=== PATIENT | female | born 1975 | race Caucasian/White ===

== ENCOUNTER 2016-11-06 01:33 | Day surgery (SDC) | payer OTHER ==
[~2016-11-06] VITALS: Ht 162.6 cm; Wt 84.5 kg
[2016-11-06] VITALS (14 sets, daily range): BP systolic 100–122; BP diastolic 62–72; PULSE 59–103; RESP 11–20; O2SAT 94–98
[~2016-11-06 01:33] MED LIST: ATEN50TA PO; CYCL5TAB PO; LEVO112T4 PO; RANI150C4 PO
[2016-11-06] MEDS ORDERED: Rocuronium 10 mg/mL 5 mL Inj ONE (01:34)
[2016-11-06] MEDS ORDERED: Ondansetron 2 mg/mL 2 mL Inj ONE (01:34)
[2016-11-06] MEDS ORDERED: Dexamethasone 4 mg/mL Inj ONE (01:34)
[2016-11-06] MEDS ORDERED: MetoCLOpramide 5 mg/mL 2 mL Inj ONE (01:34)
[2016-11-06] MEDS ORDERED: Ketamine 10 mg/mL 20 mL Inj ONE (01:34)
[2016-11-06] MEDS ORDERED: fentaNYL-PF 50 mCg/mL 2 mL Inj ONE (01:34)
[2016-11-06] MEDS ORDERED: Propofol 10,000 mCg/mL 20 mL Inj ONE (01:34)
[2016-11-06] MEDS ORDERED: Lactated Ringer's 1,000 ML IV SCH ×2 (05:00→12:16)
[2016-11-06 09:48] LABS: BASOPHILS % (AUTO) 0.5 % (0-3); EOSINOPHILS % (AUTO) 5.3 % (0-5); MONOCYTES % (AUTO) 12.5 % (4-12); Mean Corpuscular Hemoglobin 29.8 pg (27.0-35.0); Mean Corpuscular Volume 89.8 fL (81-100); NEUTROPHILS % (AUTO) 49.5 % (40-74); Platelet Count 280 bil/L (150-400)
[2016-11-06 10:06] LABS: INR 0.94 ratio
[2016-11-06] MEDS ORDERED: Lactated Ringer's 500 ML IV PRN (12:16)
--- NOTE | 2016-11-06 12:16 | PCM.HPANE ---
Patient Data Surgeon Admitting Provider: Attending Provider:Jaime Gonzales MD Primary Care Physician:Allison Smith DO Other Provider: Reason for Visit Super Ventricular Tachycardia Ht/WT & BMI Height (Feet): 5 Height (Inches): 4.00 Weight (Kilograms): 84.500 Body Mass Index 31.80 Allergies Coded Allergies: Penicillins (Verified Allergy, Severe, 10/10/15) ampicillin (Verified Allergy, Unknown, 10/10/15) dicloxacillin (Verified Allergy, Unknown, 10/10/15) doxycycline (Verified Allergy, Unknown, 10/10/15) Uncoded Allergies: Penicillin (Allergy, Severe, 11/13/03) Past Anesthesia History Anesthesia History: Denies:: Anesthesia Reactions Diabetes History Hx Diabetes?: No MRSA MRSA: No Medications Hypertension Medication: No Home Meds Incl Beta Abdelrahman: No Reported Medications Cyclobenzaprine 5 Mg Tablet2.5-15 Mg PO HS PRN Spasm Ref 0 11/05/16 Ranitidine 150 Mg [id number] Mg PO DAILY Ref 0 May take once or twice a day 10/09/15 Levothyroxine 112 Mcg [id number] Mcg PO DAILY For Thyroid Replacement Ref 0 10/09/15 Atenolol 50 Mg [id number] Mg PO DAILY #30 TABLET Ref 0 02/06/15 History History of ENT Problems?: No Hx of Heart Problems?: Yes Cardiovascular History: Positive for:: Cardiac Surgery (ablations) Chest Pain Irregular Heartbeat (SVT, post ablation wtih recurrence) Denies:: Congestive Heart Failure Edema Heart Murmur Hypertension Pacemaker Thrombophlebitis Hx of Respiratory Problem?: No Hx Neurologic Problems?: No Hx of GI Problems?: No Gastrointestinal History: Positive for:: Heartburn (RARELY) Hx of Problems?: Yes Genitourinary History: Positive for:: Kidney Stones (12 years ago. pass on their own) Urinary Tract Infection (has had several) Female Hx: Denies:: Currently Hx Musculoskeletal Problems?: No Hx of Psycho/Social Problems?: No Hx Surgeries?: Yes Hx Any Other Health Problems?: Yes Other History: Positive for:: Hospitalization Thyroid Disease Denies:: Cancer History Blood Transfusions: Denies:: Accept Blood Products? Blood Transfuse Reaction Blood Transfusions Hx Diabetes: No Hx Alcohol Use: Yes (occasional)Hx Substance Use: No Smoking Status: Former Smoker Current Some Day Smoker Have You Smoked inLast 12 mo: YesApprox How Many Cigarettes/day: 3 Stop/Bang Treated for Sleep Apnea?: Yes Do You Have a CPAP Machine?: Yes B- Body Mass Index > 35 kg/m2: No A- Age over 50: No N- Neck Large Circumference: Yes G- Gender Male: No GUY Risk Assessment: High Risk, =/>3 Yes Risk Assessment Category Category 1A: Patient has history of documented sleep apnea, and HAS NOT received any narcotic, sedative or anesthesia administration during this stay. Category 1B: Patient has history of documented sleep apnea, and HAS received any narcotic , sedative or anesthesia administration during this stay Category 2: Patient has SUSPECTED Obstructive Sleep Apnea, and HAS received any narcotic , sedative or anesthesia administration during this stay. Category 3: Patient has SUSPECTED Obstructive Sleep Apnea and HAS NOT received narcotic, sedative or anesthesia administration during this stay. Category 4: Outpatient in Procedural Areas with known sleep apnea or who screen positive for High Risk via the STOP/BANG questionnaire. Exam Exam Vital Signs Vital Signs Date Time Temp Pulse Resp B/P Pulse Ox O2 Delivery O2 Flow Rate FiO2 11/06/16 09:49 36.8 59 15 100/69 98 Room Air General Appearance: Oriented X3 HEENT/AIRWAY: MP 2 Lungs: Normal Air Movement Heart: Regular Rate/Rhythm Meds/Labs/Diagnostics Labs Test 11/06/16 09:45 White Blood Count 6.6th/mm3 (3.8-10.1) Red Blood Count 4.63mil/mm3 (3.90-5.20) Hemoglobin 13.8g/dL (12.0-15.6) Hematocrit 41.6% (35.0-46.0) Mean Corpuscular Volume 89.8fL (81-100) Mean Corpuscular Hemoglobin 29.8pg (27.0-35.0) Mean Corpuscular Hemoglobin Concent 33.2% (32.0-37.0) Red Cell Distribution Width 13.7% (12.3-15.4) Platelet Count 280bil/L (150-400) Neutrophils (%) (Auto) 49.5% (40-74) Lymphocytes (%) (Auto) 32.0% (14-46) Monocytes (%) (Auto) 12.5% (4-12) Eosinophils (%) (Auto) 5.3% (0-5) Basophils (%) (Auto) 0.5% (0-3) Prothrombin Time 10.0sec (8.1-12.5) Prothromb Time International Ratio 0.94ratio Sodium Level 139mEq/L (134-144) Potassium Level 4.2mEq/L (3.5-5.2) Chloride Level 104mEq/L (97-108) Carbon Dioxide Level 24mmol/L (18-29) Blood Urea Nitrogen 8mg/dL (6-24) Creatinine 0.74mg/dL (0.57-1.00) Estimat Glomerular Filtration Rate 123mL/min (>59) Glucose Level 93mg/dL (60-99) Calcium Level 9.2mg/dL (8.5-10.1) Plan Impression Patient chart reviewed, patient interviewed and anesthestic plan with risks, benefits, and alternatives discussed, and informed consent obtained. ASA Physical Status: ASA3 Severe Disease Anesthetic Support Modalities: Arterial Line Anesthetic Plan: GA Bene/Risks/Altern/Consents: Yes HP Complete Prior to Induction: Yes Gustabo Olmedo MD Nov 06, 2016 12:16
[2016-11-06] MEDS ORDERED: MetoCLOpramide 5 mg/mL 2 mL Inj IVPUSH PRN (12:20)
[2016-11-06] MEDS ORDERED: EPHEDrine Sulfate 50 mg/mL Inj IVPUSH PRN (12:20)
[2016-11-06] MEDS ORDERED: HYDROmorphone 1 mg/mL Inj IVPUSH PRN (12:20)
[2016-11-06] MEDS ORDERED: Dexamethasone 4 mg/mL Inj IVPUSH PRN (12:20)
[2016-11-06] MEDS ORDERED: fentaNYL-PF 50 mCg/mL 2 mL Inj IVPUSH PRN (12:20)
[2016-11-06] MEDS ORDERED: Ondansetron 2 mg/mL 2 mL Inj IVPUSH PRN (12:20)
[2016-11-06] MEDS ORDERED: Phenylephrine 10,000 mCg/mL Inj IVPUSH PRN (12:20)
[2016-11-06] MEDS ORDERED: Heparin 5,000 Units/500 mL NS Premix IV ONE (12:24)
[2016-11-06] MEDS ORDERED: 0.9% Sodium Chloride 500 ML ONE (13:01)
[2016-11-06] MEDS ORDERED: Isoproterenol 200 mCg/50 mL D5W IV IV ONE (14:16)
--- NOTE | 2016-11-06 15:57 | PCM.ANEP2 ---
Post Anesthesia Evaluation ASA/CMS Post Anesthesia VS in Patient's Normal Range?: Yes Resp Stable; Airway Patent?: Yes CV Function & Hydration Stable: Yes Mental Status Recovered?: Yes Pain control Satisfactory?: Yes N/V Control Satisfactory?: Yes Gustabo Olmedo MD Nov 06, 2016 15:57
--- NOTE | 2016-11-06 15:57 | PCM.ANEP1 ---
Post Anesthesia Phase 1 PACU Phase 1 Assessment Vital Signs Vital Signs Date Time Temp Pulse Resp B/P Pulse Ox O2 Delivery O2 Flow Rate FiO2 11/06/16 15:40 97 18 114/71 11/06/16 15:40 97 13 114/71 98 Room Air 11/06/16 15:35 102 18 120/72 11/06/16 15:35 102 13 120/72 98 Room Air 11/06/16 15:30 103 18 121/64 98 Room Air 11/06/16 15:30 103 18 121/64 11/06/16 09:49 36.8 59 15 100/69 98 Room Air Anesthetic Administered: GA Level of Alertness: Awake, talking Pain: No Lungs: Normal Air Movement Gustabo Olmedo MD Nov 06, 2016 15:57
[2016-11-06] MEDS: HYDROcodone-APAP 5-325 mg Tablet PO PRN ×2 (16:32→23:29)
[2016-11-06] MEDS: 0.9% Sodium Chloride 1,000 ML IV SCH ×2 (16:33→17:45)
--- NOTE | 2016-11-06 16:37 | PROCED ---
[address] [address] PROCEDURE NOTE PATIENT: RADHA MADRID : 1975 MR#: [id number] ADMIT: 11/06/2016 JOB ID: [id number] DATE OF SERVICE: 11/06/2016 PREOPERATIVE DIAGNOSIS(ES): Paroxysmal drug refractory supraventricular tachycardia. 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 PROCEDURES PERFORMED: 1. Comprehensive electrophysiology study including left atrial pacing recording via the coronary sinus catheter. 2. Supraventricular tachycardia ablation (slow pathway modification). 3. Three-dimensional electroanatomic mapping using the CARTO 3 system. 4. Drug provocation with isoproterenol. 5. Fluoroscopy. SURGEON: Jaime Gonzales MD, electrophysiology attending [employer]: Justin Aleman PA-C; Sylvester Chacon. ANESTHESIA: General endotracheal anesthesia was undertaken for this case. INDICATION: The patient is a pleasant 41-year-old woman with a structurally normal heart and recurrent drug refractory SVT for which she has had a previous EP study without inducibility of tachycardia but with noted dual AV javy physiology. On loop recorder interrogation, she has had multiple episodes of short RP SVT. After discussion of risks and benefits of EP study and a slow pathway modification, she opted to proceed. PROCEDURAL DESCRIPTION: Following informed and signed consent, the patient was taken to the EP laboratory in a fasting nonsedated state, where she was prepped in the usual sterile fashion. The bilateral groins were infiltrated with 1% lidocaine. Then, using modified Seldinger technique, two 6-Cook Islander sheaths were inserted into the left femoral vein. A 7 and 8-[place] sheath were inserted into the right femoral vein. Under fluoroscopic guidance, a deflectable decapolar catheter was advanced to the coronary sinus with the most proximal bipole at the os of the sinus. A CRD 2 catheter was advanced to the His position and a Rox quadripolar catheter was advanced to the RV apex. A comprehensive electrophysiology study was undertaken with right atrial pacing and recording, right ventricular pacing and recording, His bundle recording, left axis coronary sinus via the coronary sinus catheter. Ventricular pacing showed a concentric atrial activation pattern. Antegrade conduction showed an antegrade jump with multiple single echoes but no nonsustained tachycardia. Isoproterenol infusion was started and aggressive maneuvers were again undertaken. She would repeatedly have single echoes but no sustained AV node re-entry tachycardia. Given her identified clinical SVT, I decided to proceed with slow pathway modification. An F curve non irrigated 4 mm ablation catheter was brought to the field and used to create a three-dimensional electroanatomic map of the right atrium, tricuspid anulus and triangle of SILVA. For stability the short 8-[place] Islander sheath was exchanged over a long wire for an SR0 sheath through which the ablation catheter was redeployed. The ablation catheter was placed at the base of the triangle of SILVA and ablation lesions were placed there in the region of the slow pathway ultimately leading to multiple conducted junctional beats. Aggressive induction maneuvers were undertaken post ablation without inducible jumps or echoes. As such, we completed our procedure. All catheters and sheaths were removed. Manual pressure was held for hemostasis. The patient was transferred to the [facility] for monitoring, bedrest and discharge. COMPLICATIONS: None. ESTIMATED BLOOD LOSS: Negligible. FINDINGS: 1. Baseline rhythm is sinus with an RR interval of 712 msec, AR 149 msec, QRS 88 msec, QT 395 msec. 2. Intracardiac intervals: AH interval 71 msec, HV 42 msec. This was post ablation. 3. Retrograde conduction: VA Wenckebach is seen at 280 msec. Atrial activation is concentric. VERP is 280 msec at a [address] VA ERP is less or equal to this value. 4. Antegrade conduction: AV Wenckebach 400 msec. Fast pathway ERP is 340 msec. Slow pathway ERP 280 msec. 5. Slow pathway modification as described above without inducibility post ablation with no antegrade jumps and no echoes. IMPRESSION: Successful slow pathway modification for atrioventricular node re-entry tachycardia. PLAN: 1. Bedrest x4 hours. 2. Monitoring and discharge from the [facility]. 3. Aspirin 325 mg p.o. daily x1 month. 4. Follow up with or Justin Aleman in clinic in four weeks. 5. Decrease diltiazem to 25 mg daily. ATTENDING STATEMENT: Jaime Gonzales MD, electrophysiology attending, was present for and supervised/performed all aspects of this procedure.
--- NOTE | 2016-11-06 17:48 | NUR ---
Care Assumed Care assumed at 1600. Bilateral groins without bleeding or hematoma. C/O pain in groins, right greater than left. No bruising or swelling noted and pt. very drowsy. More awake at 1630 and c/o 8/10 pain. Vicodin 2 po given but states not helpful. Motrin 600mg po given and awaiting result. VSS. Tele SR. Po intake increasing. Art line discontinued intact at 1700 and no bleeding or hematoma. O2 titrated down to 2L to this point. Continue to monitor per order.
[2016-11-06] MEDS ORDERED: Lidocaine 2% 6mL Topical Jelly TOPICAL ONE (18:30)
--- NOTE | 2016-11-06 20:40 | NUR ---
LUCAS->[facility] rm 3013 pt arrived on [facility] via stretcher by LUCAS CORTES. pt c/o pain 05/12 on R inguinal area, 5/10 on L. Pt oriented to unit. Questions answered. Personal belongings put away. VSS. Call light in reach. bed in low position, 3 rails up. IVs x2 patent. Both sites are C/D/I with bandages. Will continue to monitor.
--- NOTE | 2016-11-06 20:44 | NUR ---
Pain/Transfer VS and groins stable at 1930 when bedrest complete. Attempted to get up but unable r/t throbbing pain in right groin. Dr. Gonzales notified and orders received. Pt voided per bedpan and Morphine 2mg IVP given and stated helpful though still had too much pain with movement to rise. Faith Healer notified and bed obtained. Report to Ethel Alonso RN. Family at bedside and aware. Transported to 3013 with all belongings via bed but staff in no acute distress. Bedside check done.
--- NOTE | 2016-11-06 22:43 | NUR ---
Ambulation/Pain Pt up to bathroom with RN at bedside. Pt winced with pain, "I'd rather have 10 kids". Will void into bedpan next time. R and L inguinal bandages unchanged. R side significantly more tender. Pt compares pain to be 2x greater on R side than L. No noted bruising or puffiness under bandages. will continue to monitor.
[2016-11-07] VITALS (8 sets, daily range): BP systolic 101–125; BP diastolic 64–77; PULSE 58–80; RESP 18–20; O2SAT 94–96
[2016-11-07] MEDS: 0.9% Sodium Chloride 1,000 ML IV SCH ×3 (03:35→22:21)
[2016-11-07] MEDS: HYDROcodone-APAP 5-325 mg Tablet PO PRN ×4 (03:41→20:30)
--- NOTE | 2016-11-07 05:08 | NUR ---
pain [place] 2 tabs given Q4hrs per pt's request for 8-08/12 groin/incision site pain R>L. Groin sites are soft without hematoma. bandaids are CDI. Tele SR in the 70s per telephone clerk. Pt is willing to try BSC, but hasn't been up yet.
--- NOTE | 2016-11-07 08:47 | NUR ---
Social Work: Screening Data: Pt is a 41 y/o female admitted for super ventricular tachycardia. Pt's PCP is Dr Smith, pt's insurance is [facility]. Pt readmit score is 4. EMR reviewed, no d/c planning needs anticipated at this time. ITEM REPAIR MANAGER will continue to follow if needs arise. Assessment: Pt who is independent at baseline. Plan: Pt will d/c home via POV when medically stable. No d/c planning needs anticipated at this time. ITEM REPAIR MANAGER will continue to follow if needs arise. DUONG Haynes
--- NOTE | 2016-11-07 10:50 | DRSVH ---
PROCEDURE: US DUPLEX DOPPLER UNILATERAL LEG ARTERIES, RIGHT INDICATIONS: r/o pseudoaneurysm TECHNIQUE: Color and pulse Doppler interrogation was performed of the right lower extremity arterial system, wit h image documentation. COMPARISON: None. FINDINGS: Sonographic images of the right groin demonstrated patency of the visualized superficial and common f emoral vasculature. No pseudoaneurysm or fluid collection is identified. IMPRESSION: No pseudoaneurysm. * Dictated by: Shelby Avery M.D. on 11/07/2016 at 10:48 Approved by: Shelby Avery M.D. on 11/07/2016 at 10:48
--- NOTE | 2016-11-07 11:57 | NUR ---
CP Pt c/o of CP (under the left breast), with numbness and tingling down both arms into fingers, and c/o of nausea. STAT ECG ordered, Zofran 4 mg given, Dr Janet negro. Pt a/o x3, conversing and laughing with family. Pt appears to be uncomfortably clutching left breast. Addendum: 11/07/16 at 1200 by KENDRA HOLLIS RN vitals stable 125/77 Hr 66, afebrile.
--- NOTE | 2016-11-07 11:59 | NUR ---
Chest discomfort Called by primary RN, pt reports feeling chest discomfort under L breast, nausea and tingling in L hand. Stat EKG ordered, tele is NSR 60's, page out to Dr Gonzales
--- NOTE | 2016-11-07 12:56 | DRSVH ---
[facility] [address] [place] [address] Echocardiogram Report Name: RADHA MADRID JStudy D ate: 11/07/2016 Height: 64 in Hospital Exam Location: [facility] Weight: 186 lb Gender: Female BSA: 1.9 m2 : 1975 Age: 41 yrs BP: 125/77 mmHg Reason For Study: CHEST PAIN S/P ABLATION Ordering Physician: Performed By: Dia Nguyen Interpretation Summary There is no pericardial effusion. Procedure: A two-dimensional transthoracic echocardiogram with Doppler was performed in limited views only. Left Ventricle: The left ventricle is normal in size. There is normal left ventricular wall thickness. The ejection fraction is estimated to be 60-65%. Assessment of diastolic parameters indicates normal left ventricular diastolic function and normal filling pressures. Great Vessels: The IVC is of normal diameter and collapses greater than 50% with a sniff. This suggests a low right atrial pressure of 3 mm Hg. Pericardium/ Pleura There is no pericardial effusion. MMode/2D Measurements & Calculations LVIDd IVC diam LV fan. diameter/BSA LV sys. diameter/BSA : 4.5 cm : 1.1 cm (cm/m^2): 2.4 (cm/m^2): 1.7 LVIDs : 3.3 cm FS: 26.7 % IVSd : 1.cm LVPWd : 0.7cm Doppler Measurements & Calculations MV E max pan MV E/A: 1.5 MV dec time MV P1/2t max pan : 82.9 cm/sec Med Peak E' Pan : 0.18 sec MV A max pan : 54.9 cm/sec E/E' med: 8.5 MVA(P1/2t): 4.2 cm2 MV P1/2t: 52.1 msecMV A dur: 0.10 sec Reading Physician:LUCIEN
[2016-11-08 01:23] VITALS: BP 111/71; PULSE 60; RESP 18; O2SAT 95
[2016-11-08 04:56] VITALS: PULSE 61
[2016-11-08 06:14] VITALS: BP 100/67; PULSE 64; RESP 18; O2SAT 96
--- NOTE | 2016-11-08 06:38 | NUR ---
cough: pt c/o cough. slightly congested, LS clear, pt on RA sats high 90's. groin incisions sites CDI. medicated pt X1 for pain this shift. will continue to monitor.
[2016-11-08 08:00] VITALS: PULSE 62
[2016-11-08] MEDS: 0.9% Sodium Chloride 1,000 ML IV SCH (08:21)
[2016-11-08] MEDS: HYDROcodone-APAP 5-325 mg Tablet PO PRN (09:06)
--- NOTE | 2016-11-08 09:24 | PCM.DIMED ---
Discharge Instructions Date of Service Nov 08, 2016 Dates of Hospitalization Nov 06, 2016 Discharge Diagnosis Discharge Diagnosis Recurrent Symptomatic Supraventricular Tachycardia Syncope Palpitations Diet No restrictions Activity Other (To prevent infection, do not sit in a bath tub, hot tub or pool for 5 days. To prevent bleeding, do not lift, push or pull more than 10 lbs for 5 days.) Call your provider Fever or Chills, Bleeding, Chest pain, Excessive diarrhea Patient Instructions Mid-level Provider (F9): Justin Aleman PA-C Follow-up with Mid-level in: 5 weeks (Appt. on Dec 05, 2016 at 12:50 (arrival time) at [facility] Cardiology with Justin Aleman PA-C) Justin Aleman PA-C Nov 08, 2016 09:24
[2016-11-08] MEDS ORDERED: HYDR-4003 PO (09:27)
--- NOTE | 2016-11-08 09:56 | PROG NOTE ---
[address] [address] PROGRESS NOTE PATIENT: RADHA MADRID : 1975 MR#: [id number] ADMIT: 11/06/2016 JOB ID: [id number] DATE: 11/07/2016 REASON FOR ADMISSION: EP study and possible ablation of recurrent supraventricular tachycardia. CHIEF COMPLAINT: Severe right groin pain since the procedure yesterday. SUBJECTIVE: The patient is a pleasant 41-year-old woman with a structurally normal heart but a longstanding history of tachycardia with arrhythmias documented by an implanted ECG recorder. She previously had an electrophysiologic study but the arrhythmia could not be induced and there was no ablation performed. She had an EP study and ablation performed yesterday and during the night and this morning she has experienced rather severe right groin pain. She finds it almost too painful to get out of bed to go to the bathroom. Also during the course of this first day after the procedure, she began experiencing a sore type discomfort under her left breast. OBJECTIVE: Vital signs have remained stable with BPs from 103/66 to 125/77. She has been afebrile, pulse has been normal sinus rhythm in the 60s and pulse oximetry shows 95% on room air. The 12 lead ECG at noon on November 07, 2016 while she was having chest pain showed sinus rhythm at 67 BPM and normal EKG without ST-segment elevations and normal T-waves. There was no indication of ischemia. An ultrasound duplex Doppler unilateral leg artery study of the right groin showed patency of the visualized superficial and common femoral vasculature and there was no pseudoaneurysm or fluid collection identified. Physical examination shows no ecchymosis in the area of the right femoral vasculature and there is no hematoma palpated beneath her skin. She is very tender to touch, however. A limited cardiac echocardiogram was obtained and this showed no pericardial effusion that might explain her chest discomfort. ASSESSMENT: The patient is post EP study and ablation of an AV node slow pathway. She has remained in sinus rhythm and has developed unusually severe tenderness and pain at the right femoral venous access site. She also has a persisting pressure discomfort under the left breast. These discomforts have required administration of hydrocodone/acetaminophen 5/325 mg tablets, 2 tablets every 4-6 hours to control pain. PLAN: Will be to continue supportive care and have the patient stay one more night. She is having too much pain to walk comfortably and she would have to climb a flight of stairs to get into her apartment at home. Also her drive is an hour from the hospital to home and this is really not feasible today. She will likely be discharged tomorrow morning.
[2016-11-08 10:00] VITALS: BP 114/76; PULSE 58; RESP 18; O2SAT 96
--- NOTE | 2016-11-08 10:21 | DIS ---
[address] [address] DISCHARGE SUMMARY PATIENT: RADHA MADRID : 1975 MR#: [id number] ADMIT: 11/06/2016 JOB ID: [id number] DIS: REASON FOR ADMISSION: Recurrent symptomatic supraventricular tachycardia. CHIEF COMPLAINT: Recurrent tachycardia with palpitations, lightheadedness and syncope on one occasion. HISTORY: The patient is a pleasant 41-year-old woman with a structurally normal heart and a longstanding history of tachycardia, for which she has undergone two prior EP studies but no ablations were performed because she was not inducible. She has had dual AV node physiology identified but no AV node reentry was inducible. An ECG loop recorder was implanted, and it has identified multiple tachycardia episodes that are irregular with a narrow QRS. She has become quite burdened with these episodes and has not been very responsive to beta blockade. Episodes occur multiple times per week and often occur at rest. She was syncopal on one occasion. COURSE IN HOSPITAL: The patient was admitted through the [facility] and taken to the catheterization laboratory, where she was placed under general anesthesia by the anesthesiologist. The electrophysiologic study was performed and again, there was evidence of dual AV node physiology but no inducible tachycardia. 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 After the procedure she was awakened from anesthesia, the right and left femoral venous sheaths were removed, hemostasis was obtained and she was transferred back to the [facility] for further recovery. Afterwards, she was brought up to the [facility] on the third floor for overnight observation and telemetry monitoring. During the night she developed rather severe pain at the right femoral venous access site, although there was no identifiable hematoma and no ecchymosis was showing up. This pain was really quite severe and she could not tolerate the getting out of bed or walking to the bathroom. She was treated with pain medications and got some relief. By about noon on November 07, 2016, she also began to experience left chest pain centered under her breast and it was persistent. A limited cardiac echo was obtained and there was no pericardial effusion. Also, a duplex ultrasound of the right groin was obtained and there was no evidence of fluid collection or pseudoaneurysm. By 5:30 p.m. on November 07, 2016, she was still quite uncomfortable with the right groin pain and the decision was made to have her stay overnight. She lives an hour away and would need to climb a flight of stairs to get into her apartment and that she was unable to do yesterday. On the morning of November 08, 2016, she felt much better. Her right groin was cloth dyeing range tender to touch but she had been able to get out of bed to the bathroom and felt that she could make it home and was desirous to be discharged. The left chest discomfort had resolved. She remains in sinus rhythm and has not had SVT. DISPOSITION: The patient was discharged home in good condition, with a followup appointment at the [facility] Cardiology office in one month. To prevent infection, she was asked not to sit in a hot tub, bathtub, or pool for five days, and to prevent bleeding, she was asked not to lift, push, or pull more than 10 pounds for five days. She will follow a regular diet and take medications as prescribed. DISCHARGE MEDICATIONS: 1. Hydrocodone/acetaminophen 5/325 mg tablets to take 1 or 2 tablets q.4-6 h. p.r.n. pain. 2. Cyclobenzaprine 2.5 up to 15 mg p.o. q.h.s. p.r.n. spasm. 3. Levothyroxine 112 mcg daily. 4. Ranitidine 150 mg daily. 5. Atenolol has been stopped. DISCHARGE DIAGNOSES: 1. Recurrent symptomatic supraventricular tachycardia. 2. History of syncope. 3. Hypothyroidism. 4. Ablation of atrioventricular node slow pathway on November 06, 2016.
--- NOTE | 2016-11-08 10:21 | NUR ---
Social Work: Discharge Data: Pt is on day 1 of hospitalization. EMR reviewed, no d/c planning needs at this time. ASSEMBLER SKYLIGHTS will continue to follow if needs arise. Assessment: Pt who is independent at baseline. Plan: Pt will d/c home via POV today. No d/c planning needs at this time. ASSEMBLER SKYLIGHTS will continue to follow if needs arise. DUONG Haynes
== END 2016-11-08 14:40 | disposition home or self-care (01) ==
LOC: SOUO 01:33 → MPC 20:49 → SOUO 11-08 14:40
PROVIDERS: ATTEND Internal Medicine Cardiovascular Disease
DX: I47.1 Supraventricular tachycardia (principal); R07.9 Chest pain, unspecified; E03.9 Hypothyroidism, unspecified; G89.18 Other acute postprocedural pain
CPT/HCPCS: 36415; 80048; 84703; 85025; 85610; 93005; 93613; 93621; 93653; 93926; C1730; C1732; C1893; C8924; J1100; J1644; J2250; J2270; J2405; J2765; J7040